=== PATIENT | male | born 1950 | race Caucasian/White ===

== ENCOUNTER → 2017-08-25 | Outpatient (CLI) | payer OTHER ==
[~2017-08-25] MED LIST: Ecotrin PO; Effient PO; LIPITOR80 MG PO; LOPRESSOR12.5 MG PO; Zestril,Prinivil PO
== END | disposition home or self-care (01) ==
LOC: NUC 07:18
DX: I25.2 Old myocardial infarction (principal); R94.39 Abnormal result of other cardiovascular function study; Z95.5 Presence of coronary angioplasty implant and graft
CPT/HCPCS: 78452; 93017; A9500; J2785